=== PATIENT | female | born 1975 | race African-American/Black ===

== ENCOUNTER → 2023-12-15 14:10 | Outpatient (REF) | payer OTHER, SELFPAY | LOC: RCS 14:10 | PROVIDERS: ATTENDING PHYSICIAN Internal Medicine Cardiovascular Disease; FAMILY PHYSICIAN Family Medicine | DX: R06.09 Other forms of dyspnea (principal) | CPT/HCPCS: 93306 ==

== ENCOUNTER 2024-03-07 10:19 | Emergency (ER) | payer OTHER, SELFPAY ==
[2024-03-07 10:25] VITALS: BP 170/98
[2024-03-07 10:44] LABS: % Basophils 1.1 % (0-2); % Eosinophils 2.8 % (0-6); % Immature Granulocytes 0.2 % (0-0.5); % Lymphocytes 36.5 % (20.5-51.1); % Monocytes 6.7 % (1.7-9.3); % Neutrophils 52.7 % (42.2-75.2); Absolute Basophils 0.1 10^3/uL (0-0.2); Absolute Eosinophils 0.2 10^3/uL (0-0.7); Absolute Monocytes 0.4 10^3/uL (0.1-0.6); Absolute Neutrophils 2.9 10^3/uL (1.4-6.5); Hematocrit 40.7 % (37.0-47.0); Hemoglobin 13.9 g/dL (12.0-16.0); Mean Corp Hgb Conc. 34.2 g/dL (33.0-37.0); Mean Corpuscular Hgb 29.6 pg (27.0-31.0); Mean Corpuscular Volume 86.8 fL (81.0-99.0); Mean Platelet Volume 10.4 fL (7.4-10.4); Nucleated Red Blood Cells % 0 %; Platelet Count 219 10^3/uL (130-400); Red Blood Cell Count 4.69 10^6/uL (4.20-5.40); Red Cell Dist. Width 13.1 % (11.5-14.5); White Blood Cell Count 5.4 10^3/uL (4.8-10.8)
[2024-03-07 10:46] LABS: Carboxyhemoglobin 2.1 %
[2024-03-07 10:59] LABS: ALT (SGPT) 23 U/L (0-35); AST (SGOT) 25 U/L (14-36); Albumin 4.4 g/dl (3.5-5.0); Alkaline Phosphatase 108 U/L (38-126); Blood Urea Nitrogen 12 mg/dl (7-17); Calcium 9.3 mg/dl (8.4-10.2); Carbon Dioxide 27 mmol/L (22-30); Chloride 103 mmol/L (98-107); Glucose 133 mg/dl (70-99); Potassium 3.8 mmol/L (3.5-5.1); Sodium 139 mmol/L (135-145); Total Bilirubin 0.5 mg/dl (0.2-1.3); Total Protein 7.6 g/dl (6.3-8.2); eGFR > 60.00
[2024-03-07] MEDS: TORADOL 15 MG IM (11:54)
--- NOTE | 2024-03-07 11:55 | ED.GENMED ---
History of Present Illness
<Viviana Padilla PA-C - Last Filed: 03/07/24 18:44>
General
Chief Complaint: Headache
Source: patient
Exam Limitations: none
Time Seen by Provider: 03/07/24 11:17
Nursing documentation reviewed up to this point in time: agreed with
History of Present Illness
History of Present Illness:
Patient is a 48-year-old female w/ history CAD, hypertension, hyperlipidemia presenting to the emergency department for evaluation of headache. Patient states that she woke up this morning with headache and mild nausea. Headache is a throbbing
sensation throughout forehead. Patient denies any fever, chills, neck pain. No vision changes, dizziness, ataxia, dysarthria or confusion. Patient denies any shortness of breath, difficulty breathing, or vomiting.
Patient concern for possible carbon monoxide poisoning. She states that her heat in her home last week. She has intermittently been using her gas stove and oven to provide some heat since .
Patient does have a history of migraines.
Review of Systems
<Viviana Padilla PA-C - Last Filed: 03/07/24 18:44>
Review of Systems
Allergies reviewed?: Yes
All Other Systems: ROS reviewed and negative except as documented in HPI and ROS
Phy Exam
<Viviana Padilla PA-C - Last Filed: 03/07/24 18:44>
Physical Exam
Physical Exam:
Vitals: Patient's vital signs are stable. Afebrile
General: Patient is well appearing, no acute distress
Skin: Warm and dry, no rashes or lesions
Head: Normocephalic, atraumatic. Scalp nontender. No rash.
Eyes: Sclera nonicteric. EOMs intact. No nystagmus. No tenderness overlying sinuses
Throat: Protecting airway
Neck: Normal ROM, no cervical spine tenderness, no meningismus
Cardiac: Regular rate and rhythm, no murmurs.
Pulm: Normal respiratory effort, no wheezes, rales, rhonchi heard on exam.
Abdomen: No abdominal tenderness.
Extremities: No evidence of cyanosis or edema. Strength out of 5 in upper and lower extremities.
Neuro: AAOx3. CN II-XII intact. No focal neurologic deficits. Steady gait. Fluid speech. Sensation fully intact.
Psychiatric: Normal affect.
Course
<Viviana Padilla PA-C - Last Filed: 03/07/24 18:44>
Orders/Labs/Results
Orders:
Orders
03/07/24 10:35
Carboxyhemoglobin Urgent
Complete Blood Count/With Diff Urgent
Comprehensive Metabolic Panel Urgent
03/07/24 11:47
Ketorolac [Toradol] 15 mg IM NOW STA
03/07/24 11:51
COVID-19 Antigen Urgent
Source: Nasal Swab
Abnormal Lab Results
03/07/24
10:35
Glucose 133 H mg/dl
(70-99)
03/07/24 10:35
03/07/24 10:35
Vital Signs
Initial and Last Documented VS:
Initial Vital Signs
Temp Pulse Resp BP Pulse Ox
97.8 F 66 16 170/98 94
03/07/24 10:25 03/07/24 10:25 03/07/24 10:25 03/07/24 10:25 03/07/24 10:25
Last Documented Vital Signs
Temp Pulse Resp BP Pulse Ox
97.8 F 66 16 170/98 95
03/07/24 10:25 03/07/24 10:25 03/07/24 10:25 03/07/24 10:25 03/07/24 12:51
<Reno Rose DO - Last Filed: 03/07/24 12:29>
Orders/Labs/Results
Orders:
Orders
03/07/24 10:35
Carboxyhemoglobin Urgent
Complete Blood Count/With Diff Urgent
Comprehensive Metabolic Panel Urgent
03/07/24 11:47
Ketorolac [Toradol] 15 mg IM NOW STA
03/07/24 11:51
COVID-19 Antigen Urgent
Source: Nasal Swab
Abnormal Lab Results
03/07/24
10:35
Glucose 133 H mg/dl
(70-99)
03/07/24 10:35
03/07/24 10:35
Vital Signs
Initial and Last Documented VS:
Initial Vital Signs
Temp Pulse Resp BP Pulse Ox
97.8 F 66 16 170/98 94
03/07/24 10:25 03/07/24 10:25 03/07/24 10:25 03/07/24 10:25 03/07/24 10:25
Last Documented Vital Signs
Temp Pulse Resp BP Pulse Ox
97.8 F 66 16 170/98 95
03/07/24 10:25 03/07/24 10:25 03/07/24 10:25 03/07/24 10:25 03/07/24 12:51
<Viviana Padilla PA-C - Last Filed: 03/07/24 18:44>
MDM/Problems Addressed
Differential Diagnosis Includes:
Not limited to: Viral illness, migraine, tension headache, occipital neuralgia, sinusitis, carbon monoxide poisoning, etc.
MDM/Problems Addressed:
48-year-old female presenting with headache since this morning with mild associated nausea. No associated neurologic symptoms. No vomiting, chest pain, shortness of breath. No dizziness. Does have history of migraines. Patient hypertensive on
arrival, otherwise stable vital signs. She is afebrile. On exam�patient is well-appearing, no apparent distress. No focal neurologic deficits noted. Heart regular rate and rhythm. Lungs clear bilaterally. Labs were initiated in triage without
any clinically significant abnormalities including a carboxyhemoglobin level which was 2.1%. Patient is oxygenating well on room air. Consider migraine versus dehydration versus viral illness. Patient using stove and oven very intermittently over
the past few days to provide heat as her heat in her home broke however�patient does have functioning carbon oxide detectors in house. Very low suspicion for carbon monoxide poisoning. Advised patient to ensure that the monitors are functioning
appropriately. Advised patient to no longer use of oven or stove for heat. Patient did receive dose of Toradol in emergency department with some improvement in symptoms and negative COVID test. At this point�suspect likely migraine headache. Vies
to follow-up with primary care. Close return precautions discussed. Patient assured will check that her car monoxide detectors are functioning properly.
Chronic conditions affecting care:
Migraines, hypertension
Acute Exacerbation and/or Progression of Chronic Illness:
Acutely hypertensive
<Viviana Padilla PA-C - Last Filed: 03/07/24 18:44>
*Pulse Oximetry
Patient hypoxic: no
*EKG
Interpreted by ED Provider?: NA
*Tankage Supervisor Interpretation
Rate: Tankage Supervisor- N/A
*Critical Care Note
Total Time (30-74mins, 75-104mins- exclusive of procedures): Not Applicable
ED Attending Note
<Viviana Padilla PA-C - Last Filed: 03/07/24 18:44>
-
Portions of this chart may have been created with voice recognition software.� Occasional wrong word or��sound alike� substitutions may have occurred due to the inherent limitations of voice recognition software.
<Reno Rose DO - Last Filed: 03/07/24 12:29>
ED Attending Note
Patient seen and examined by attending physician: Yes
I performed the substantive portion of visit, reviewed & personally made and approve the management plan that is documented in note by myself or RUBÉN.: Yes
Discharge Plan
Departure
Patient Disposition: Home (Routine Discharge)
Date of Disposition: 03/07/24
Time of Disposition: 12:29
Patient with high blood pressure during this ER visit?: Yes
Condition: Good
Discharge Problem:
Headache
Instructions: Headache, Adult (DC), BLOOD PRESSURE
Referrals:
Marni Montgomery MD [Family Provider] - Follow up in 1 week
Activity Restrictions/Additional Instructions:
RETURN TO THE EMERGENCY DEPARTMENT WITH ANY HIGH FEVERS, SEVERE HEADACHE OR NECK PAIN, CHANGES IN VISION, CHANGES IN MENTAL STATUS, WORSENING IN CURRENT SYMPTOMS, OR ANY OTHER CONCERNS
-You can continue to take Tylenol and/or Motrin as needed for headache. You can try Excedrin Migraine. Does important stay well-hydrated. Get plenty of rest.
-As discussed/it is very important that you ensure you have a function carbon monoxide detector in your home.
-Follow-up with your primary care fighter as needed for further evaluation/manage
Monitor your symptoms closely and return to the emergency department with any acute worsening/new symptoms or any other concerns
Interventions
Interventions:
*Risk Screen - Suicide Last Done: 03/07/24 11:14
*General Assessment Last Done: 03/07/24 11:14
*Neglect/Abuse Screening Last Done: 03/07/24 11:14
*Nursing Disposition Last Done: 03/07/24 12:51
ED- Neurological Assessment Last Done: 03/07/24 11:14
Discharge Date and Time
Discharge Date/Time: 03/07/24 12:51
Print Language: MARSHALLESE
[2024-03-07 12:23] LABS: COVID-19 Antigen Negative (Negative)
== END 2024-03-07 12:51 | disposition home or self-care (01) ==
LOC: EMR 10:19
PROVIDERS: Physician Assistant; EMERGENCY PHYSICIAN Emergency Medicine; FAMILY PHYSICIAN Family Medicine
DX: R51.9 Headache, unspecified (principal); I25.10 Atherosclerotic heart disease of native coronary artery without angina pectoris; I10 Essential (primary) hypertension; E78.5 Hyperlipidemia, unspecified
CPT/HCPCS: 96372; 99284; 80053; 82375; 85025; 87811

== ENCOUNTER 2025-01-24 19:05 | Emergency (ER) | payer OTHER, SELFPAY ==
[2025-01-24 19:07] VITALS: BP 187/105
[2025-01-24 19:25] LABS: Hematocrit 40.0 % (37.0-47.0); Hemoglobin 13.9 g/dL (12.0-16.0); Mean Corp Hgb Conc. 34.8 g/dL (33.0-37.0); Mean Corpuscular Volume 83.9 fL (81.0-99.0); Nucleated Red Blood Cells % 0 %; Platelet Count 252 10^3/uL (130-400); Red Cell Dist. Width 13.7 % (11.5-14.5)
[2025-01-24 19:38] LABS: ALT (SGPT) 19 U/L (0-35); AST (SGOT) 23 U/L (14-36); Albumin 4.4 g/dl (3.5-5.0); Alkaline Phosphatase 85 U/L (38-126); Blood Urea Nitrogen 10 mg/dl (7-17); Calcium 9.8 mg/dl (8.4-10.2); Carbon Dioxide 26 mmol/L (22-30); Chloride 106 mmol/L (98-107); Glucose 103 mg/dl (70-99); Lipase 236 U/L (23-300); Potassium 3.9 mmol/L (3.5-5.1); Sodium 138 mmol/L (135-145); Total Protein 8.0 g/dl (6.3-8.2); eGFR > 60.00
--- NOTE | 2025-01-24 22:12 | ED.GENMED ---
History of Present Illness
General
Chief Complaint: Abdominal Pain
Source: patient
Exam Limitations: none
Time Seen by Provider: 01/24/25 22:01
Nursing documentation reviewed up to this point in time: agreed with
History of Present Illness
History of Present Illness:
49-year-old female with a past medical history of hypertension, hyperlipidemia, CAD status post CABG who presents to the emergency department for evaluation of abdominal pain. Patient reports onset of symptoms about 2 weeks ago and they have been
constant and progressive since then. She reports pain in the left abdomen mostly upper abdomen radiates towards the flank. It seems to be triggered by food, no clear relieving factors noted. She reports associated nausea which was quite intense
today and ultimately prompted ER visit. No vomiting reported. No diarrhea in fact she has been mildly constipated. No urinary symptoms. No fevers or chills reported. She says she had similar symptoms a little over a year ago and was seen by GI
through [facility] says that at that time she had an endoscopy and was told she had some gastritis. Prior surgical history includes , tubal ligation and hysterectomy.
Review of Systems
Review of Systems
All Other Systems: ROS reviewed and negative except as documented in HPI and ROS
Constitutional: Denies fever
Respiratory: Denies trouble breathing
Cardiac: Denies chest pain
ABD/GI: Reports abdominal pain, nausea and constipated; Denies vomiting or diarrhea
: Reports flank pain; Denies dysuria or frequency
Musculoskeletal: Denies neck pain
Neurological: Denies dizzy or headache
Phy Exam
Physical Exam
Physical Exam:
General: Awake, alert, oriented x3; no acute distress
Head: Normocephalic, atraumatic
Eyes: Conjunctiva normal, sclera anicteric
Throat: Airway intact, handling secretions
Neck: Trachea midline, moving freely without pain
Lungs: Clear to auscultation bilaterally, no wheezing, rales, rhonchi
Heart: Regular rate and rhythm, no murmurs, gallops, or rubs
Abd: Normoactive bowel sounds; abdomen is soft, non distended, mildly tender in the left upper abdomen, no palpable hepatosplenomegaly or masses
Neuro: Grossly intact
Skin: Warm and dry, no rash in the area of concern
Extremities: Warm and well-perfused with no edema
Scores
Heart Failure Risk
Heart Failure Risk Score: Not Applicable
Heart Score for Chest Pain Patients
STEMI patient?: Not applicable
Withdrawal Assessment of Alcohol
Withdrawal Assessment Completed?: Not applicable
Course
Orders/Labs/Results
Orders:
Orders
01/24/25 19:14
Comprehensive Metabolic Panel Urgent
Lipase Urgent
01/24/25 19:15
Complete Blood Count/With Diff Urgent
01/24/25 22:11
CT Abd/pelvis W Iv Cont Urgent
Comment:
Reason For Exam: left sided abd pain
01/24/25 22:12
Electrocardiogram (*1) Urgent
Reason for Study: Abdominal Pain
EKG- Treatment ONCE
01/24/25 22:16
Vital Signs- Treatment ONCE
Frequency: Once
01/24/25 22:48
Troponin I Urgent
Urinalysis Reflex To Culture Urgent
Date Specimen was Collected: 01/24/25
Time Specimen was Collected: 19:10
Urine Microscopic Reflex Cult Urgent
01/25/25 00:13
Pantoprazole [Protonix IV] 40 mg IV NOW STA
Abnormal Lab Results
01/24/25 01/24/25 01/24/25
19:14 19:15 22:48
MPV 10.5 H fL
(7.4-10.4)
Glucose 103 H mg/dl
(70-99)
Urine Albumin (Reflex) 1+ A
(Neg - Trace)
01/24/25 19:15
01/24/25 19:14
Vital Signs
Initial and Last Documented VS:
Initial Vital Signs
Temp Pulse Resp BP
36.4 C 77 16 187/105
01/24/25 19:07 01/24/25 19:07 01/24/25 19:07 01/24/25 19:07
Last Documented Vital Signs
Temp Pulse Resp BP Pulse Ox
36.6 C 66 18 171/96 100
01/24/25 22:28 01/25/25 00:30 01/24/25 22:28 01/25/25 00:00 01/25/25 00:30
MDM/Problems Addressed
Differential Diagnosis Includes:
PUD, gastritis, pancreatitis, cholelithiasis, cholecystitis; much less likely anginal equivalent
MDM/Problems Addressed:
49-year-old female presents for evaluation of left upper abdominal pain over the past 2 weeks worse with meals associated with nausea. Had similar episode although less severe about a year ago, apparently had gastritis on endoscopy at that time.
Vital signs here are significant for hypertension. Physical exam is as above. She had lab work in triage including a CBC and a CMP which showed no clinically significant abnormalities on my independent review. Her lipase is normal. Urinalysis is
pending. Will send for a CT abdomen pelvis. Given her cardiac history with upper abdominal pain will check EKG and troponin in an abundance of caution although certainly very low clinical suspicion that symptoms are anginal. Overall suspect this
is likely gastritis versus PUD. Will monitor closely reassess after the above.
EKG shows no significant change from prior, troponin undetectable which is sufficient to rule out acute VT with ongoing symptoms for [address] abdomen pelvis shows no acute abnormalities. Her urinalysis is bland. Overall suspect gastritis
versus PUD. Stable for discharge will initiate treatment with PPI, Carafate. Referred to GI for outpatient follow-up. Patient comfortable with this plan. All questions answered.
*Radiology
Radiology exam reviewed: radiology read reviewed
*Pulse Oximetry
SaO2: 100
Oxygen Mode of Delivery: Room air
Patient hypoxic: no (100%)
*EKG
Interpreted by ED Provider?: Yes
Comparison EKG: no changes (no significant change from prior)
Heart Rate: 60
Rate: normal
Rhythm: sinus
[place]: normal axis
Interval: normal interval
QRS Pattern: normal QRS
Ischemia: T-wave inversion
*Critical Care Note
Total Time (30-74mins, 75-104mins- exclusive of procedures): Not Applicable
Data Reviewed
Review of Other/Old Records Reveals: Labs and Records
Source: patient and records
ED Attending Note
-
Portions of this chart may have been created with voice recognition software.� Occasional wrong word or��sound alike� substitutions may have occurred due to the inherent limitations of voice recognition software.
Discharge Plan
Departure
Patient Disposition: Home (Routine Discharge)
Date of Disposition: 01/25/25
Time of Disposition: 00:13
Patient with high blood pressure during this ER visit?: Yes
Discharge Problem:
Abdominal pain
Instructions: Peptic ulcers, Abdominal Pain
Prescriptions:
New
pantoprazole [Protonix] 40 mg tablet,delayed release (DR/EC)
40 mg PO DAILY Qty: 30 0RF
sucralfate [Carafate] 1 gram tablet
1 g PO ACHS Qty: 90 0RF
No Action
amlodipine 5 mg Tablet
5 mg PO DAILY
trazodone 50 mg Tablet
50 mg PO HS PRN (Reason: sleep)
Referrals:
Alejandrina Dela Cruz MD [Active, Gastroenterology] - Call in 1-3 days for appt
Marni Montgomery MD [Family Provider, Family Practice]
Activity Restrictions/Additional Instructions:
Thank you for visiting the Emergency Department at [facility].
1. Please schedule a follow up appointment as directed. Call first thing tomorrow morning to make an appointment.
2. If indicated, please take your medications as instructed and indicated on discharge paperwork.
3. If any of your symptoms do not improve, or persist, or become more severe within 6-12 hours, please return to the emergency department for further care.
4. Please return to the emergency department if you develop a headache, neck pain/stiffness, fever greater than 100.4F, chest pain, shortness of breath, persistent nausea, vomiting, slurred speech, difficulty walking, numbness/tingling, weakness,
signs of infection or any other symptoms that are worrisome to you.
Please call [phone] if you have any questions.
Interventions
Interventions:
*Risk Screen - Suicide Last Done: 01/24/25 22:30
*General Assessment Last Done: 01/24/25 22:30
*Neglect/Abuse Screening Last Done: 01/24/25 22:30
*ED- Fall Risk Assessment Last Done: 01/24/25 22:30
*ED COVID-19 Vaccine History Last Done: 01/24/25 22:30
*ED Influenza Vaccine History Last Done: 01/24/25 22:30
*Nursing Disposition Last Done: 01/25/25 00:45
ES-Rcxgyz-Iiluraszzb Assessment Last Done: 01/24/25 22:42
Discharge Date and Time
Discharge Date/Time: 01/25/25 00:46
Print Language: [place]
[2025-01-24 22:28] VITALS: BP 178/101
[2025-01-24 22:29] VITALS: BMI 32.2
[2025-01-24 23:00] VITALS: BP 170/96
[2025-01-24 23:02] LABS: Urine Character Clear (Clear)
[2025-01-24 23:21] LABS: Urine Red Blood Cell 0-2 /HPF (0-2); Urine Squamous Cell 0-2 /LPF (Few); Urine White Cell 0-2 /HPF (0-5)
[2025-01-24 23:24] LABS: Troponin I < 0.012 ng/ml
[2025-01-25] VITALS: BP 171/96
[2025-01-25] MEDS: PROTONIX IV 40 MG IV (00:20)
== END 2025-01-25 00:46 | disposition home or self-care (01) ==
LOC: EMR 19:05
PROVIDERS: Emergency Medicine; EMERGENCY PHYSICIAN Emergency Medicine; FAMILY PHYSICIAN Family Medicine
DX: R10.9 Unspecified abdominal pain (principal); E78.5 Hyperlipidemia, unspecified; I10 Essential (primary) hypertension; I25.10 Atherosclerotic heart disease of native coronary artery without angina pectoris; Z95.1 Presence of aortocoronary bypass graft; Z90.710 Acquired absence of both cervix and uterus
CPT/HCPCS: 99284; 96374; 74177; 80053; 81003; 81015; 83690; 84484; 85025; 93005; Q9967

== ENCOUNTER 2025-02-18 06:14 | Day surgery (SDC) | payer OTHER, SELFPAY | END 2025-02-18 15:11 | disposition home or self-care (01) | LOC: GI 06:14 | PROVIDERS: ATTENDING PHYSICIAN Internal Medicine Gastroenterology | DX: R12 Heartburn (principal); K44.9 Diaphragmatic hernia without obstruction or gangrene; K29.50 Unspecified chronic gastritis without bleeding; B96.81 Helicobacter pylori [H. pylori] as the cause of diseases classified elsewhere; K31.A19 Gastric intestinal metaplasia without dysplasia, unspecified site | CPT/HCPCS: 43239; 88305; 88342 ==